=== PATIENT | male | born 2000 | race Caucasian/White ===

== ENCOUNTER 2022-03-19 22:06 | Emergency (ER) | payer OTHER, SELFPAY ==
[2022-03-19 22:19] VITALS: BP 135/85; PULSE 104; RESP 16; TEMP 37.1; O2SAT 97; BMI 33.7
--- NOTE | 2022-03-19 22:38 | ED_ITS ---
HPI - General Adult General Time Seen by Provider: 22:38 Date Seen: 03/19/22 Chief complaint: Ear/Nose/Throat Problem Stated complaint: Right Ear Pain Time Seen by Provider: 03/19/22 22:13 Source: patient Mode of arrival: ambulatory Limitations: no limitations History of Present Illness HPI narrative: Patient is a 22-year-old white male who has right ear pain, he has had a cold last couple of days, mild cough, runny nose. He has had history of ear infections in the past, and states this p.m. similar. He is afebrile with a good O2 sat. He is generally healthy Related Data Home Medications Medication Instructions Recorded Confirmed No Known Home Medications 03/19/22 03/19/22 Previous Rx's Medication Instructions Recorded cephalexin 500 mg capsule 500 mg PO BID #20 caps 03/19/22 Allergies Allergy/AdvReac Type Severity Reaction Status Date / Time No Known Drug Allergies Allergy Verified 03/19/22 22:24 Review of Systems Status of ROS: Reports: 6 or more systems reviewed and unremarkable except as noted in History and below PFSH PFSH Social History Smoking Status: Never smoker Do you use any of these nicotine containing products: None How often do you have a drink containing alcohol: never AUDIT-C Alcohol total score: 0 Non-prescribed substance use: denies use Exam Narrative: Exam Narrative: Patient has mild coryza, vital signs are unremarkable Right otitis media left TM clear throat clear neck is supple clear rhinorrhea noted Const: Vital Signs, click to edit/add: Vital Signs - 24 hr 03/19/22 22:19 Temperature 98.7 F Pulse Rate [Right Pulse Oximeter] 104 H Respiratory Rate 16 Blood Pressure [Ri ght Upper Arm] 135/85 Pulse Oximetry 97 Oxygen Delivery Me thod Room Air Course Vital Signs Vital signs: Initial Vital Signs Temperature 98.7 F 03/19/22 22:19 Temperature Source Temporal Artery Scan 03/19/22 22:19 Pulse Rate 104 H 03/19/22 22:19 Respiratory Rate 16 03/19/22 22:19 Blood Pressure 135/85 03/19/22 22:19 Blood Pressure Mean 101 03/19/22 22:19 Blood Pressure Position Sitting 03/19/22 22:19 Pulse Oximetry 97 03/19/22 22:19 Oxygen Delivery Method 03/19/22 22:19 Vital Signs Temperature 98.7 F 03/19/22 22:19 Pulse Rate 104 H 03/19/22 22:19 Respiratory Rate 16 03/19/22 22:19 Blood Pressure 135/85 03/19/22 22:19 Pulse Oximetry 97 03/19/22 22:19 Oxygen Delivery Method 03/19/22 22:19 Temperature 98.7 F 03/19/22 22:19 Pulse Rate 104 H 03/19/22 22:19 Respiratory Rate 16 03/19/22 22:19 Blood Pressure 135/85 03/19/22 22:19 Pulse Oximetry 97 03/19/22 22:19 Oxygen Delivery Method 03/19/22 22:19 Medical Decision Making MDM Narrative Medical decision making narrative: Patient has stigmata of an RSV COVID or influenza type illness common will do a triple swab for him. Call him later with results. Will also treat his otitis media with Keflex 500 orally and he can oyster picker 500 b.i.d. times 10 days tomorrow at [facility]. The [employer] is not working today Discharge Plan Discharge Clinical Impression: Upper respiratory infection, Otitis media Patient Disposition: Home, Self-Care Condition: Stable Instructions: Ear Infection (ED) Additional Instructions: Rest, light activity, Keflex 500 b.i.d. times 10 days may oyster picker the prescription tomorrow. Advil or Tylenol as needed for discomfort. Will call back with results of his nasal swab later tonight. Return as needed. Activity Level: Light activity Discharge Diet: Regular Prescriptions: New cephalexin 500 mg capsule 500 mg PO BID Qty: 20 0RF No Action No Known Home Medications Stand Alone Forms: MyHealth Info Instructions
[2022-03-19] MEDS: cephALEXin 500 MG CAPSULE PO (22:42)
--- OUTSIDE RECORDS SUMMARY | 2022-03-19 22:50 | XMS_ITS | Clinical Summary ---
:2000 Author Organization [facility] [place] [address] Care Team Providers Name Role Phone Lucy Rojas MD Primary Care Provider Allergies No known active allergies Medications Medication Sig Dispensed Refills Start Date End Date Status multivitamin (MVI) Take 1 tablet by 0 03/13/2019 Active tablet mouth once daily. doxycycline hyclate 50 Take 50 mg by 90 Tablet 0 05/13/2021 Active mg tabIndications: mouth 2 times Acne, unspecified acne daily. type Active Problems Problem Noted Date Allergic rhinitis GERD (gastroesophageal reflux disease) Resolved Problems Problem Noted Date Resolved Date Wrist fracture 08/17/2014 12/02/2015 Wrist fracture 08/17/2014 12/02/2015 Unspecified otitis media 08/23/2012 09/29/2013 Contact dermatitis and other eczema, due to unspecified 01/1809/29/2013 cause Dysfunction of eustachian tube 10/12/2011 4 Sensory hearing loss, unilateral 10/12/2011 014 Allergic rhinitis, cause unspecified 07/18/2011 Sensorineural hearing loss, asymmetrical 06/18/2011 09/29/2013 Sensorineural hearing loss, unilateral 06/04/2011 0 09/29/2013 Sensorineural hearing loss, unspecified 05/28/2011 09/29/2013 Unspecified hearing loss 05/25/2011 09/29/2013 Strabismic amblyopia 11/20/2008 09/29/2013 Acute tonsillitis 04/25/2004 09/29/2013 Teething syndrome 12/31/2003 09/29/2013 UNSPECIFIED VIRAL INFECTION 10/16/2003 09/29/2013 Immunizations Name Administration Dates Next Due COVID-19 vaccine ([employer]-J&J) PF, MDV 07/24/2020 COVID-19 vaccine (Metranome 03/14/2021 30mcg/0.3mL) PF, MDV DTaP 06/12/2003, 2002, 2002, 2002 HIB PRP-OMP (PedvaxHIB) 03/09/2003 HIB-HepB (Comvax) 2002, 2002, 2002 HPV 9 (Gardasil 9) 12/04/2016, 12/02/2015 Hepatitis A (Peds) 12/02/2015, 12/01/2013 Inactivated Polio Vaccine 12/01/2013, 2002 Influenza, IIV4 03/14/2021, 02/16/2019, 02/07/2018 Influenza, IIV4 (=>6mos) MDV 01/26/2018 Influenza,LAIV4 Live Intranasal 01/22/2020 (Flumist) MMR 03/09/2003 MMRV 12/01/2013 Meningococcal B 03/13/2019, 03/09/2018 Meningococcal Vaccine (Menveo) 03/09/2018, 12/02/2015 Oral Polio Vaccine 2002, 2002 Pneumococcal conj 7-Valent (Prevnar 7) 03/09/2003, 3, 2002, 2002 Tdap 12/01/2013 Varicella Vaccine 03/09/2003 Family History Medical History Relation Name Comments Diabetes type I Brother Bipolar disorder Father Bear Heart Disease Maternal Grandfather Hypertension Maternal Grandfather Mastocytosis Maternal Grandfather Arthritis Maternal Grandmother Hypertension Maternal Grandmother Hypertension Mother Ellen Lupus Mother Ellen Relation Name Status Comments Brother Father Bear Maternal Grandfather Maternal Grandmother Mother Ellen Alive Social History Tobacco Use Types Packs/Day Years Used Date Never Smoker Smokeless Tobacco: Never Used Alcohol Use Standard Drinks/Week Comments No 0 (1 standard drink = 0.6 oz pure alcoho l) Sex Assigned at Date Recorded Not on file Obstetrics History Last Filed Vital Signs Vital Sign Reading Time Taken Comments Blood Pressure 112/62 05/13/2021 2:35 PM HOME CARE AIDE Pulse 98 05/13/2021 2:35 PM HOME CARE AIDE Temperature 37.2 ??C (98.9 ??F) 05/13/2021 2:35 PM HOME CARE AIDE Respiratory Rate 16 03/13/2019 10:20 AM HOME CARE AIDE Oxygen Saturation 98% 05/13/2021 2:35 PM HOME CARE AIDE Inhaled Oxygen Concentration - - Weight 86.3 kg (190 lb 3.2 oz) 05/13/2021 2:35 PM HOME CARE AIDE Height 175.3 cm (5' 9) 03/13/2019 10:20 AM HOME CARE AIDE Body Mass Index - - Plan of Treatment Health Maintenance Due Date Last Done Comments HIV for age 15-65 2017 BMI (ht and wt on same day) for 02/27/2020 age 18+ Hepatitis C screening for age 1102/27/2020 18-79 Depression screening for age 12+ 03/13/2020 03/13/2019, , 03/09/2018, Additional history exists Well Child Check for age 3-20 03/13/2020 03/13/2019, 2017, 12/04/2016, Additional history exists COVID-19 vaccine series (3 - 05/09/2021 03/14/2021, 021 Booster for Eugenia series) Influenza for age 9-49 12/18/2021 03/14/2021, 01/22/2020, 02/16/2019, Additional history exists Tetanus booster 12/02/2023 12/01/2013 Tdap Completed 12/01/2013 HPV series for age 9-26 Completed 12/04/2016, 12/02/2015 Meningococcal series for age 11-21 Completed 03/09/2018, 0 12/02/2015 Results Not on filefrom Last 3 Months Insurance Payer Benefit Plan / Subscriber ID Effective Dates Phone Addre ss Type Group [employer] 2013-Present [address] [place] [address] Care Teams Double End [employer] Operator Relationship Specialty Start Date End Date Lucy Rojas MD PCP - General Family Practice 10/29/[address] [place] [id number]
[2022-03-19 23:28] LABS: PCR FLU A Negative PCR FLU A (Negative); PCR FLU B Negative PCR FLU B (Negative); PCR RSV Negative PCR RSV (Negative)
[2022-03-19 23:32] LABS: SARS PCR* Negative SARS-CoV-2 (Negative)
--- NOTE | 2022-03-23 09:03 | ED.NURSE ---
Patient called for results of nasal swab last . Results were reported to patient. [email or web address] had no further questions at this time.
== END 2022-03-19 23:05 | disposition home or self-care (01) ==
PROVIDERS: Emergency Provider Family Medicine
DX: H66.91 Otitis media, unspecified, right ear (principal); J06.9 Acute upper respiratory infection, unspecified
CPT/HCPCS: 87502; 87634; 87635; 99283; 99284; A9270